=== PATIENT | male | born 1975 | race Caucasian/White ===

== ENCOUNTER → 2016-11-13 | Outpatient (CLI) | payer BC ==
[~2016-11-13] MED LIST: None per pt
== END | disposition home or self-care (01) ==
LOC: STAR 08:16
PROVIDERS: ATTEND Orthopaedic Surgery
DX: Z01.811 Encounter for preprocedural respiratory examination (principal); R06.02 Shortness of breath; Z87.891 Personal history of nicotine dependence; S83.241A Other tear of medial meniscus, current injury, right knee, initial encounter; X58.XXXA Exposure to other specified factors, initial encounter; Y93.89 Activity, other specified; Y92.89 Other specified places as the place of occurrence of the external cause; Y99.8 Other external cause status
CPT/HCPCS: 71020

== ENCOUNTER 2016-11-25 07:30 | Day surgery (SDC) | payer BC ==
[2016-11-13 08:39] VITALS: BP 121/84
[~2016-11-25] VITALS: Ht 170.2 cm; Wt 96.0 kg
[2016-11-25] MEDS ORDERED: LACTATED RINGERS 1,000 ML IV SCH (07:55)
[2016-11-25] MEDS ORDERED: FENTANYL PF 100 MCG/2ML ONE ×3 (08:04→10:01)
[2016-11-25] MEDS ORDERED: MIDAZOLAM 1 MG/ML, 2ML ONE (08:04)
[2016-11-25] MEDS ORDERED: ACETAMINOPHEN 325 MG TABLET PO PRN (08:30)
[2016-11-25] MEDS ORDERED: hydrALAzine 20 MG/ML, 1ML IV PRN (08:30)
[2016-11-25] MEDS ORDERED: ONDANSETRON 2MG/ML, 2ML IVPush PRN (08:30)
[2016-11-25] MEDS ORDERED: BUPIVACAINE/PF-EPI 0.5% 1:200K INFIL ONE (08:30)
[2016-11-25] MEDS ORDERED: EPHEDRINE 50 MG/ML, 1ML IVPush PRN (08:30)
[2016-11-25] MEDS ORDERED: HYDROmorphone 1 MG/ML, 1ML IV PRN (08:30)
[2016-11-25] MEDS ORDERED: OXYcodone 5 MG/5 ML ORAL.SOL UDC PO PRN (08:30)
[2016-11-25] MEDS ORDERED: MEPERIDINE/PF 25MG/0.5ML IVPush PRN (08:30)
[2016-11-25] MEDS ORDERED: LIDOCAINE 1%-EPI 1:100K, 30ML INFIL ONE (08:30)
[2016-11-25] MEDS ORDERED: LABETALOL 5MG/ML, 20ML IV PRN (08:30)
[2016-11-25] MEDS ORDERED: ALBUTEROL SULFATE 2.5 MG/3 ML NPPB PRN (08:30)
[2016-11-25] MEDS ORDERED: METOPROLOL 1 MG/ML, 5ML IV PRN (08:30)
[2016-11-25] MEDS ORDERED: ONDANSETRON 2MG/ML, 2ML ONE (08:57)
[2016-11-25] MEDS ORDERED: METOCLOPRAMIDE 5 MG/ML, 2ML ONE (08:57)
[2016-11-25] MEDS ORDERED: PROPOFOL 10 MG/ML, 20ML ONE (08:57)
[2016-11-25] MEDS ORDERED: CEFAZOLIN 1,000 MG ONE (08:57)
[2016-11-25] MEDS ORDERED: DEXAMETHASONE 4 MG/ML, 1ML ONE (08:57)
[2016-11-25] MEDS ORDERED: KETOROLAC 30 MG/1 ML ONE (08:57)
[2016-11-25] MEDS ORDERED: OXYcodone 5 MG/5 ML ORAL.SOL UDC ONE (09:46)
[2016-11-25] MEDS: FENTANYL PF 100 MCG/2ML IV PRN ×3 (09:48→10:05)
[2016-11-25] MEDS ORDERED: OXYcodone IR 5MG TABLET ONE (11:00)
[2016-11-25] MEDS ORDERED: OXYcodone IR 5MG TABLET PO ONE (11:00)
== END 2016-11-25 11:30 | disposition home or self-care (01) ==
LOC: OUT 07:30
PROVIDERS: ATTEND Orthopaedic Surgery
DX: S83.231A Complex tear of medial meniscus, current injury, right knee, initial encounter (principal); M94.261 Chondromalacia, right knee; F17.210 Nicotine dependence, cigarettes, uncomplicated; X58.XXXA Exposure to other specified factors, initial encounter; Y93.9 Activity, unspecified; Y92.9 Unspecified place or not applicable; Y99.9 Unspecified external cause status
CPT/HCPCS: 29881; J0690; J1100; J1885; J2250; J2405; J2704; J2765; J3010; J3490; J7120